=== PATIENT | female | born 1940 | race Caucasian/White ===

== ENCOUNTER 2020-07-15 07:16 | Emergency (ER) | payer MEDICARE, OTHER ==
[~2020-07-15] VITALS: Ht 170.2 cm; Wt 78.9 kg
--- NOTE | 2020-07-15 07:31 | Emergency Department Note ---
History of Present Illnes History of Present Illness Chief Complaint: Skin Rash or Abscess History of Present Illness This is a 79 year old female Chief Complaint Comment Patient in from assisted living via EMS with complaints of a lesion on her right breast that has been bleeding since early this morning. Patient has a history of breast cancer and dementia and is a poor historian. The bleeding is not severe but it is oozing small amounts of blood. Historian: Patient, Note Keeper/EMS Arrival Mode: [facility] Maintenance Required: No Onset (how long ago): hour(s) Location: R chest Quality: bleeding Radiation: Reports non-radiation Severity: mild Onset quality: unable to specify Duration (how long): hour(s) Timing of current episode: constant Progression: improving Chronicity: recurrent Context: Denies recent illness, Denies recent surgery Relieving factors: none Exacerbating factors: none Associated symptoms: Reports denies other symptoms Treatments prior to arrival: none Past Medical/Family History Physician Review I have reviewed the patient's past medical and family history. Any updates have been documented here. Past Medical History Recent Fever: No Clinical Suspicion of Infectio: No New/Unexplained Change in Ment: No Review of Systems Review of Systems Constitutional: Reports no symptoms EENTM: Reports no symptoms Cardiovascular: Reports no symptoms Respiratory: Reports no symptoms Gastrointestinal: Reports no symptoms Genitourinary: Reports no symptoms Musculoskeletal: Reports no symptoms Integumentary: Reports as per HPI Neurological: Reports no symptoms Psychological: Reports no symptoms Endocrine: Reports no symptoms Hematological/Lymphatic: Reports no symptoms Physical Exam Related Data Allergies: Coded Allergies: Penicillins (Verified Allergy, Unknown, 07/15/20) Triage Vital Signs Vital Signs Date Time Temp Pulse Resp B/P (MAP) Pulse Ox O2 Delivery O2 Flow Rate FiO2 07/15/20 07:18 98.2 61 15 154/75 99 Room Air Vital signs reviewed: Yes Physical Exam CONSTITUTIONAL Constitutional: Present well-developed, Present well-nourished HENT HENT: Present normocephalic, Present atraumatic, Present oropharynx clear/moist, Present nose normal HENT L/R: Present left ext ear normal, Present right ext ear normal EYES Eyes: Reports PERRL, Reports conjunctivae normal NECK Neck: Present ROM normal PULMONARY Pulmonary: Present effort normal, Present breath sounds normal CARDIOVASCULAR Cardiovascular: Present regular rhythm, Present heart sounds normal, Present capillary refill normal, Present normal rate GASTROINTESTINAL Abdominal: Present soft, Present nontender, Present bowel sounds normal GENITOURINARY Genitourinary: Present exam deferred SKIN Skin: Present warm, Present dry, Present lesion (R sided breast blue-sherrill raised lesion 2cm x 2cm x 1cm with scant bleeding) MUSCULOSKELETAL Musculoskeletal: Present ROM normal NEUROLOGICAL Neurological: Present alert, Present oriented x 3, Present no gross motor or sensory deficits PSYCHOLOGICAL Psychological: Present mood/affect normal, Present judgement normal Assessment & Plan Medical Decision Making MDM 79 y.o f PMH of breast CA presents to the ED for R sided angiosarcoma lesions which is oozing blood. No other complaints. This is recurrent. Exam shows noted lesion on exam. No significant bleeding. Blood work unremarkable. 4x4 placed on lesion and taped down. Discussed management with daughter and patient. no longer bleeding. CT shows known findings. No emergent process. Appropriate for DC. 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
[2020-07-15 07:33] LABS: BASOPHILS # (AUTO) 0.1 (0.0-0.1); EOSINOPHILS # (AUTO) 0.2 (0.0-0.4); EOSINOPHILS % 3.4 % (0.0-6.0); HEMATOCRIT 41.4 % (34.2-44.1); HEMOGLOBIN 13.3 g/dL (12.0-16.0); LYMPHOCYTES # (AUTO) 2.7 (1.0-3.2); LYMPHOCYTES % 37.3 % (18.0-39.1); MEAN CORPUSCULAR HEMOGLOBIN 30.9 pg (28-32); MEAN CORPUSCULAR HGB CONC 32.1 g/dL (31-35); MEAN CORPUSCULAR VOLUME 96.3 fL (81-99); MONOCYTES # (AUTO) 0.5 (0.2-0.8); MONOCYTES % 6.6 % (4.4-11.3); NEUTROPHILS # (AUTO) 3.7 (2.1-6.9); NEUTROPHILS % 51.6 % (38.7-80.0); PLATELET COUNT 312 x10e3/uL (140-360); RED CELL DISTRIBUTION WIDTH 13.2 % (11.7-14.4)
[2020-07-15 07:43] LABS: INR 0.94
[2020-07-15 07:53] LABS: ALBUMIN 3.3 g/dL (3.5-5.0); ALBUMIN/GLOBULIN RATIO 1.1 (0.8-2.0); ANION GAP 14.1 mmol/L (8-16); CALCIUM 8.8 mg/dL (8.4-10.2); CREATININE, SERUM 1.01 mg/dL (0.57-1.11); POTASSIUM 4.1 mmol/L (3.5-5.1)
--- OUTSIDE RECORDS SUMMARY | 2020-07-15 08:06 | XMS REPORT | Continuity of Care Document ---
Author Author [facility] t Organization [facility] Address [address] [place] [id number] Phone Unavailable Care Team Providers Care Sieve Repairer Name Role Phone Aurelia JONES PCP Unavailable SYSTEM, NOT IN PROVIDER Attphys Unavailable Kera Aiken Attphys Ro Johns Attphys Unavailable Eugenio Bonilla Attphys Status, Fax Attphys Unavailable Richi MedAdherenceSusana Attphys [place] MedRocio Fall Attphys Unavailable Rosemary Ruiz Attphys Unavailable Kassandra Polanco Attphys Unavailable Jeff Griffiths Attphys Unavailable Unique Hanks Attphys Gunderson, Kerri Attphys Unavailable Anders, Araceli Attphys Unavailable Sujey Calvillo Attphys Margaret Beal Attphys Unavailable Dipak Sexton Attphys Unavailable Tia Bonilla Attphys Unavailable Maddy Hernadez Attphys Unavailable Troy Janice Attphys Unavailable Taylor Macias Attphys Unavailable Connie, Madhumita Attphys Lydia Thompson Attphys Unavailable Ana Gutierrez Attphys Zora Kirkland Attphys Unavailable Tonya Pollard Attphys Unavailable Ximena Dumont Attphys Unavailable Nati Christina Attphys Unavailable Genia Pena Attphys Unavailable Nardevin, Teofilo Attphys Unavailable Ximena Fisher Attphys Unavailable Domenico Stern Attphys Unavailable Desktop, [facility] Support Attphys Unavailable PupGeri de dios Attphys Preload, Zoroastrianism Attphys Unavailable Attila Kera Unavailable Tanner Rosales Unavailable Domenico Stern Unavailable Unavailable Problems Condition Name Condition Details Condition Category Status Onset Date Resolution Date Last Treatment Date Treating Clinician Comments Source Dementia Condition Active 2017-11-19 00:00:00 6 10:49:07 Kera Aiken [facility] INSOMNIA Condition Active 2017-09-12 00:00:00 2017-08-30 4 10:24:52 [facility] PTSD Condition Active 2017-09-12 00:00:00 2017-09-12 10:24:52 [facility] Memory impairment Condition Active 2017-04-25 00:00:00 2017-04-25 09:20:38 [facility] Hyperlipidemia Condition Active 2016-11-01 00:00:00 201 04-05-27 09:08:17 Ananya Rosalesangi ASCVD risk 27, recommend moderate to hig h intensity statin therapy [facility] Cholesterol, Screening Condition Active 2016-10-29 00:00: 00 2016-10-29 15:12:48 Connie [facility] Shortness of breath Condition Active 2016-08-01 00:00:00 2016-10-29 [facility]07[facility] depression Condition Active 2016-08-01 00:00:00 2016-10-29 15:07:31 [facility] BMI 31.0-31.9 Condition Active 2016-02-24 00:00:00 2015 16:08:35 [facility] Obesity Condition Active 2015-08-24 00:00:00 2016-02-24 15:57:28 [facility] Elevated blood pressure Condition Active 2015-08-02 00:00 :00 2015-08-02 20:01:00 [facility] Condition Active 2015-08-02 00:00:00 2015-08-02 [facility]ox[facility] Condition Active 2015-04-30 1 00:00:00 2015-08-02 08:57:31 Tanner Rosales [facility] HYPOTHYROIDISM Condition Active 2014-02-25 00:00:00 201 01-02-29 16:39:03 Domenico Stern [facility] History of Past Illness Condition Name Condition Details Condition Category Status Onset Date Resolution Date Last Treatment Date Treating Clinician Comments Source Vaccination Against Influenza Condition Inactive 2015-09 00:00:00 2017-01-28 00:00:00 2016-10-29 15:07:31 Connie [facility] Grief reaction, acute Condition Inactive 2016-08-01 00: 00:00 2016-10-29 00:00:00 2016-10-29 15:12:48 Connie [facility] Cellulitis Condition Inactive 2016-02-24 00:00:00 2016-10-02 0 00:00:00 2016-10-29 15:12:48 Connie [facility] Chest pain Condition Inactive 2015-05-10 00:00:00 3 00:00:00 2015-08-02 16:37:[address] [facility] Allergies, Adverse Reactions, Alerts Allergy Name Allergy Type Status Severity Reaction(s) Onset Date Inacti ve Date Treating Clinician Comments Source PENICILLIN Drug allergy (disorder) Active High Criticality [facility] Social History Social Habit Start Date Stop Date Quantity Comments Source passive cigarette smoke exposure 2019-10-20 10:26:24 2019-10-20 10:26 :24 No [facility] drug use, illicit 2019-10-20 10:26:24 2019-10-20 10:26:24 Never [facility] alcohol use 2019-10-20 10:26:24 2019-10-20 10:26:24 Never [facility] assessment of health literacy (NCQA PCM 2014 Standard s, 3C10) 2019-10-20 10:26:24 2019-10-20 10:26:24 Adequate [facility] is there any chance that you could be ? 2019-10-20 1 0:26:24 2019-10-20 10:26:24 No [facility] lt time of call 2018-01-23 13:58:52 2018-01-23 13:58:52 01/23/2018 1:59 PM [facility] social history reviewed E&M 2017-12-03 10:49:16 2017-12-03 10:49 :16 reviewed today [facility] Occupation #1 2014-02-25 15:42:23 2014-02-25 15:42:23 Retired [facility] patient considered to be homeless 2014-02-25 15:42:23 2014-02-25 15:4 2:23 No [facility] Smoking Status Start Date Stop Date Source Never smoked tobacco (finding) L [facility] Medications Ordered Medication Name Filled Medication Name Start Date Stop Da te Current Medication? Ordering Clinician Indication Dosage Frequency Signature (SIG) Comments Components Source FIRST-PROGESTERONE VGS (PROGESTERONE) 200 MG SUPP 2019-10-05 00:00:00 Yes use as instructed [facility] WELLBUTRIN XL (BUPROPION HCL) 150 MG [id number] 2019-10-05 00:00:00 Yes Kera Attila 1{Tablet} 1xD one tablet once daily [facility] (LOSARTAN POTASSIUM) 100 MG TABS 2019-10-05 00:00:00 Yes 1{Tablet} 1xD one tablet once daily [facility]alth (SERTRALINE HCL) 25 MG TABS 2017-12-03 00:00:00 2019-10-05 00:00 :00 No 1 tablet by mouth at bedtime [facility] (TRAZODONE HCL) 50 MG TABS 2017-11-19 00:00:00 2019-10-05 00:00:00 No Kera Attila one tablet once daily at bedtime [facility] (RIVASTIGMINE TARTRATE) 1.5 MG CAPS 2017-01-29 00:00:0 0 2019-10-05 00:00:00 No TAKE ONE CAPSULE BY MOUTH EVERY DAY #90, 90 days supply, Prescribed by SHANTA NAJERA, Filled 04/17/2017 [facility] lt (ATORVASTATIN CALCIUM) 20 MG TABS 2016-11-01 00:00:00 Ye negra Kera Attila 1 tab By Mouth at bedtime [facility] PROAIR HFA (ALBUTEROL SULFATE) 108 (90 Base) MCG/ACT AERS 2016-08-01 00:00:00 2019-10-05 00:00:00 No 2 puffs every 4 - 6 hours as needed [facility] (SERTRALINE HCL) 25 MG TABS 2016-08-01 00:00:00 2017-11-19 00:00 :00 No 1 tab By Mouth at bedtime [facility] ELIQUIS (APIXABAN) 2.5 MG TABS 2016-02-24 00:00:00 2019-10-05 00 :00:00 No 1 tab By Mouth Twice a Day L [facility] BACTRIM DS (SULFAMETHOXAZOLE-TRIMETHOPRIM) 800-160 MG TABS 2016-02-24 00:00:00 2016-03-05 00:00:00 No Madhumita Connie 1 tab by mouth twice a day [facility] (RANITIDINE HCL) 150 MG TABS 2015-08-02 00:00:00 2019-10-05 00:0 0:00 No 1 by mouth twice a day [facility] (ATORVASTATIN CALCIUM) 20 MG TABS 2015-06-09 00:00:00 2014 00:00:00 No take one tab By Mouth Every at bedtime [facility] (METOPROLOL TARTRATE) 25 MG TABS 2015-06-09 00:00:00 2015-07 00:00:00 No 1 by mouth twice a day Tia [facility] SYNTHROID (LEVOTHYROXINE SODIUM) 125 MCG TABS 10-02-29 00:00:00 2019-10-05 00:00:00 No Take one half tablet daily. [facility] Vital Signs Vital Name Observation Time Observation Value Comments Source oxygen saturation, oximetry 2019-10-20 10:26:24 96 % [facility] blood pressure, diastolic 2019-10-20 10:26:24 77 mm[Hg] [facility] blood pressure, systolic 2019-10-20 10:26:24 125 mm[Hg] [facility] respiratory rate E&M 2019-10-20 10:26:24 14 /min [facility] pulse rate E&M 2019-10-20 10:26:24 94 /min [facility] temperature site 2019-10-20 10:26:24 oral [facility] temperature E&M 2019-10-20 10:26:24 98.0 [degF] Legac y Replaced By [facility] weight E&M 2019-10-20 10:26:24 187.40 [lb_av] [facility] weight in kilograms E&M 2019-10-20 10:26:24 85.18 kg [facility] height in centimeters E&M 2019-10-20 10:26:24 170.18 cm [facility] oxygen saturation, oximetry 2019-10-05 13:43:48 98 % [facility] blood pressure, diastolic 2019-10-05 13:43:48 75 mm[Hg] [facility] blood pressure, systolic 2019-10-05 13:43:48 118 mm[Hg] [facility] respiratory rate E&M 2019-10-05 13:43:48 14 /min [facility] pulse rate E&M 2019-10-05 13:43:48 90 /min [facility] temperature site 2019-10-05 13:43:48 oral Lega [facility] temperature E&M 2019-10-05 13:43:48 97.9 [degF] Legac [facility] weight E&M 2019-10-05 13:43:48 186.20 [lb_av] [facility] weight in kilograms E&M 2019-10-05 13:43:48 84.64 kg [facility] height in centimeters E&M 2019-10-05 13:43:48 170.18 cm [facility] oxygen saturation, oximetry 2017-12-03 10:49:16 98 % [facility] blood pressure, diastolic 2017-12-03 10:49:16 84 mm[Hg] [facility] blood pressure, systolic 2017-12-03 10:49:16 148 mm[Hg] [facility] respiratory rate E&M 2017-12-03 10:49:16 17 /min [facility] pulse rate E&M 2017-12-03 10:49:16 75 /min [facility] temperature site 2017-12-03 10:49:16 oral Lega [facility] temperature E&M 2017-12-03 10:49:16 97.8 [degF] Legac [facility] weight E&M 2017-12-03 10:49:16 197 [facility]av] [facility] 2017-12-03 10:49:16 89.55 kg [facility] height in centimeters E&M 2017-12-03 10:49:16 170.18 cm [facility] oxygen saturation, oximetry 2017-11-19 08:51:05 94 % [facility] blood pressure, diastolic 2017-11-19 08:51:05 77 mm[Hg] [facility] blood pressure, systolic 2017-11-19 08:51:05 138 mm[Hg] [facility] respiratory rate E&M 2017-11-19 08:51:05 16 /min [facility] pulse rate E&M 2017-11-19 08:51:05 80 /min [facility] temperature site 2017-11-19 08:51:05 oral Lega cy [facility] temperature E&M 2017-11-19 08:51:05 97.7 [degF] Legac y Replaced By [facility] weight E&M 2017-11-19 08:51:05 194 [lb_av] [facility]&M 2017-11-19 08:51:05 88.18 kg [facility] height E&M 2017-11-19 08:51:05 67 [in_i] [facility] blood pressure, diastolic 2017-09-12 08:32:33 83 mm[Hg] [facility] blood pressure, systolic 2017-09-12 08:32:33 152 mm[Hg] [facility] oxygen saturation, oximetry 2017-09-12 08:32:33 98 % [facility] respiratory rate E&M 2017-09-12 08:32:33 18 /min [facility] pulse rate E&M 2017-09-12 08:32:33 69 /min [facility] temperature site 2017-09-12 08:32:33 oral Lega cy Replaced By [facility] temperature E&M 2017-09-12 08:32:33 98.3 [degF] [facility] weight E&M 2017-09-12 08:32:33 203.80 [lb_av] [facility] weight in kilograms E&M 2017-09-12 08:32:33 92.64 kg [facility] height in centimeters E&M 2017-09-12 08:32:33 170.18 cm [facility] oxygen saturation, oximetry 2017-04-25 08:18:10 98 % [facility] blood pressure, diastolic 2017-04-25 08:18:10 84 mm[Hg] [facility] blood pressure, systolic 2017-04-25 08:18:10 127 mm[Hg] [facility] respiratory rate E&M 2017-04-25 08:18:10 18 /min [facility] pulse rate E&M 2017-04-25 08:18:10 79 /min [facility] temperature site 2017-04-25 08:18:10 oral Lega cy Replaced By [facility] temperature E&M 2017-04-25 08:18:10 98.7 [degF] Legac y Replaced By [facility] weight E&M 2017-04-25 08:18:10 211 [lb_av] [facility] weight in kilograms E&M 2017-04-25 08:18:10 95.91 kg [facility] height in centimeters E&M 2017-04-25 08:18:10 170.18 cm [facility] oxygen saturation, oximetry 2016-10-29 14:40:11 97 % [facility] blood pressure, diastolic 2016-10-29 14:40:11 82 mm[Hg] [facility] blood pressure, systolic 2016-10-29 14:40:11 172 mm[Hg] [facility] respiratory rate E&M 2016-10-29 14:40:11 16 /min [facility] pulse rate E&M 2016-10-29 14:40:11 71 /min [facility] temperature site 2016-10-29 14:40:11 tympanic Lega [facility] temperature E&M 2016-10-29 14:40:11 98.2 [degF] [facility] weight E&M 2016-10-29 14:40:11 205 [lb_av] [facility] weight in kilograms E&M 2016-10-29 14:40:11 93.18 kg [facility] height E&M 2016-10-29 14:40:11 67 [in_i] [facility] oxygen saturation, oximetry 2016-10-18 14:04:19 98 % [facility] blood pressure, diastolic 2016-10-18 14:04:19 84 mm[Hg] [facility] blood pressure, systolic 2016-10-18 14:04:19 152 mm[Hg] [facility] respiratory rate E&M 2016-10-18 14:04:19 17 /min [facility] pulse rate E&M 2016-10-18 14:04:19 74 /min [facility] temperature E&M 2016-10-18 14:04:19 98 [degF] Legac y Replaced By [facility] weight E&M 2016-10-18 14:04:19 203 [lb_av] [facility] 2016-10-18 14:04:19 92.27 kg [facility] height in centimeters E&M 2016-10-18 14:04:19 170.18 cm [facility] oxygen saturation, oximetry 2016-08-01 08:03:14 98 % [facility] blood pressure, diastolic 2016-08-01 08:03:14 77 mm[Hg] [facility] blood pressure, systolic 2016-08-01 08:03:14 134 mm[Hg] [facility] respiratory rate E&M 2016-08-01 08:03:14 16 /min [facility] pulse rate E&M 2016-08-01 08:03:14 75 /min [facility] temperature site 2016-08-01 08:03:14 oral Lega cy [facility] temperature E&M 2016-08-01 08:03:14 98.3 [degF] Legac y Replaced By [facility] weight E&M 2016-08-01 08:03:14 200.40 [lb_av] [facility] weight in kilograms E&M 2016-08-01 08:03:14 91.09 kg [facility] height in centimeters E&M 2016-08-01 08:03:14 170.18 cm [facility] oxygen saturation, oximetry 2016-02-24 15:20:02 98 % [facility] blood pressure, diastolic 2016-02-24 15:20:02 94 mm[Hg] [facility] blood pressure, systolic 2016-02-24 15:20:02 142 mm[Hg] [facility] respiratory rate E&M 2016-02-24 15:20:02 20 /min [facility] pulse rate E&M 2016-02-24 15:20:02 83 /min [facility] temperature site 2016-02-24 15:20:02 oral Lega cy Replaced By [facility] temperature E&M 2016-02-24 15:20:02 98.0 [degF] [facility] weight E&M 2016-02-24 15:20:02 202.38 [lb_av] [facility] weight in kilograms E&M 2016-02-24 15:20:02 91.99 kg [facility] height in centimeters E&M 2016-02-24 15:20:02 170.18 cm [facility] oxygen saturation, oximetry 2015-08-23 08:46:18 98 % [facility] blood pressure, diastolic 2015-08-23 08:46:18 72 mm[Hg] [facility] blood pressure, systolic 2015-08-23 08:46:18 148 mm[Hg] [facility] respiratory rate E&M 2015-08-23 08:46:18 19 /min [facility] pulse rate E&M 2015-08-23 08:46:18 71 /min [facility] temperature E&M 2015-08-23 08:46:18 98.4 [degF] Legac y Replaced By [facility] weight E&M 2015-08-23 08:46:18 205 [lb_av] [facility] weight in kilograms E&M 2015-08-23 08:46:18 93.18 kg [facility] temperature site 2015-08-23 08:46:18 oral Lega cy [facility] height in centimeters E&M 2015-08-23 08:46:18 170.18 cm [facility] oxygen saturation, oximetry 2015-08-02 08:25:59 98 % [facility] blood pressure, diastolic 2015-08-02 08:25:59 96 mm[Hg] [facility] blood pressure, systolic 2015-08-02 08:25:59 150 mm[Hg] [facility] respiratory rate E&M 2015-08-02 08:25:59 16 /min [facility] pulse rate E&M 2015-08-02 08:25:59 76 /min [facility] temperature site 2015-08-02 08:25:59 oral Lega cy Replaced By [facility] temperature E&M 2015-08-02 08:25:59 98.3 [degF] Legac y Replaced By [facility] weight E&M 2015-08-02 08:25:59 207.38 [lb_av] [facility] weight in kilograms E&M 2015-08-02 08:25:59 94.26 kg [facility] height in centimeters E&M 2015-08-02 08:25:59 170.18 cm [facility] oxygen saturation, oximetry 2015-05-10 15:27:25 98 % [facility] blood pressure, diastolic 2015-05-10 15:27:25 82 mm[Hg] [facility] blood pressure, systolic 2015-05-10 15:27:25 155 mm[Hg] [facility] respiratory rate E&M 2015-05-10 15:27:25 20 /min [facility] pulse rate E&M 2015-05-10 15:27:25 77 /min [facility] temperature site 2015-05-10 15:27:25 oral Lega cy [facility] temperature E&M 2015-05-10 15:27:25 98.1 [degF] Legac y Replaced By [facility] weight E&M 2015-05-10 15:27:25 200.25 [lb_av] [facility] weight in kilograms E&M 2015-05-10 15:27:25 91.02 kg [facility] height in centimeters E&M 2015-05-10 15:27:25 170.18 cm [facility] oxygen saturation, oximetry 2014-02-25 15:42:23 98 % [facility] blood pressure, diastolic 2014-02-25 15:42:23 84 mm[Hg] [facility] blood pressure, systolic 2014-02-25 15:42:23 156 mm[Hg] [facility] respiratory rate E&M 2014-02-25 15:42:23 20 /min [facility] pulse rate E&M 2014-02-25 15:42:23 93 /min [facility] temperature site 2014-02-25 15:42:23 oral Lega cy Replaced By [facility] temperature E&M 2014-02-25 15:42:23 98.4 [degF] Legac y [facility] weight E&M 2014-02-25 15:42:23 192.80 [lb_av] [facility] weight in kilograms E&M 2014-02-25 15:42:23 87.64 kg [facility] height in centimeters E&M 2014-02-25 15:42:23 170.18 cm [facility] blood pressure, systolic 2013-03-27 00:00:00 106 mm[Hg] [facility] respiratory rate E&M 2013-03-27 00:00:00 18 /min [facility] blood pressure, diastolic 2013-03-27 00:00:00 68 mm[Hg] [facility] pulse rate E&M 2013-03-27 00:00:00 66 /min [facility] blood pressure, diastolic 2012-04-09 00:00:00 80 mm[Hg] [facility] blood pressure, systolic 2012-04-09 00:00:00 136 mm[Hg] [facility] respiratory rate E&M 2012-04-09 00:00:00 20 /min [facility] pulse rate E&M 2012-04-09 00:00:00 86 /min [facility] height E&M 2012-04-09 00:00:00 67.00 [in_i] [facility] weight E&M 2012-04-09 00:00:00 244.50 [lb_av] [facility] Procedures Procedure Date / Time Performed Performing Clinician Sour e Spirometry - Pre vs Post Bronchodilator 2016-10-18 14:45:22 Ehda ie, Elza Perez [facility] Influenza 4 Valent 3yrs+ IM - Declined 2016-08-01 08:42:18 Tanner Rosales [facility] EKG - Tracing Only 2015-05-10 16:44:31 Tanner Rosales [facility] Encounters Start Date/Time End Date/Time Encounter Type Admission Type Attendi [facility] Care Department Encounter ID Source 2020-07-13 08:56:57 Outpatient SYSTEM, PROVIDER MANOHAR VILLELA [id number] MD Fuller 2019-10-20 00:00:00 2019-10-20 00:00:00 Office Visit Kera Santos Adriana [facility] Encounter/[id number] [facility] 2019-10-14 00:00:00 2019-10-14 00:00:00 Office Visit AttilaKera [facility] Encounter/[id number] [facility] 2019-10-05 00:00:00 2019-10-05 00:00:00 Office Visit Kera Santos Adriana [facility] Encounter/[id number] [facility] 2018-12-09 00:00:00 2018-12-09 00:00:00 Office Visit Froylan Bonilla [facility] Encounter/[id number] [facility] 2018-12-02 00:00:00 2018-12-02 00:00:00 Office Visit Heidy Guajardo [facility] Encounter/[id number] [facility] 2018-05-05 00:00:00 2018-05-05 00:00:00 Office Visit Ida posadas MedAdherSusana woods [facility] Encounter/[id number] [facility] 2018-05-05 00:00:00 2018-05-05 00:00:00 Office Visit Ida posadas MedAdherSusana woods [facility] Encounter/[id number] [facility] 2018-03-31 00:00:00 2018-03-31 00:00:00 Office Visit Libertad cuevas MedAdherchuck Rocio [facility] Encounter/[id number] [facility] 2018-03-29 00:00:00 2018-03-29 00:00:00 Office Visit Libertad revlori MedAdherchuck Rocio [facility] Encounter/[id number] [facility] 2018-03-25 00:00:00 2018-03-25 00:00:00 Office Visit Libertad cuevas MedAdherchuck Rocio [facility] Encounter/[id number] [facility] 2018-03-25 00:00:00 2018-03-25 00:00:00 Office Visit Libertad Chowdary Rocio [facility] Encounter/[id number] [facility] 2018-02-20 00:00:00 2018-02-20 00:00:00 Office Visit Ida posadas MedAdherSusana woods [facility] Encounter/[id number] [facility] 2018-02-19 00:00:00 2018-02-19 00:00:00 Office Visit Ida posadas MedAdherSusana woods [facility] Encounter/[id number] [facility] 2018-02-19 00:00:00 2018-02-19 00:00:00 Office Visit Ida posadas MedAdherCordell woodsyn [facility] Encounter/[id number] [facility] 2018-01-24 00:00:00 2018-01-24 00:00:00 Office Visit Rosemary Ruiz [facility] Encounter/[id number] [facility] 2018-01-23 00:00:00 2018-01-23 00:00:00 Office Visit Libertad Chowdary, Rocio Polanco, Kassandra Griffiths, Kera Yuen [facility] Center Encounter/[id number] [facility] 2018-01-20 00:00:00 2018-01-20 00:00:00 Office Visit Libertad revlori MedAdherchuck Rocio [facility] Encounter/[id number] [facility] 2018-01-18 00:00:00 2018-01-18 00:00:00 Office Visit Libertad revino MedAdherchuck Rocio [facility] Encounter/[id number] [facility] 2018-01-02 00:00:00 2018-01-02 00:00:00 Office Visit Libertad revino MedAdherence Rocio [facility] Encounter/[id number] [facility] 2018-01-02 00:00:00 2018-01-02 00:00:00 Office Visit Libertad revino [facility] Encounter/[id number] [facility] 2017-12-23 00:00:00 2017-12-23 00:00:00 Office Visit Libertad mason [facility], Roc[facility] Encounter/[id number] [facility] 2017-12-21 00:00:00 2017-12-21 00:00:00 Office Visit Libertad mason [facility], Rocio [facility] Encounter/[id number] [facility] 2017-12-05 00:00:00 2017-12-05 00:00:00 Office Visit Status, Fax [facility] Encounter/[id number] [facility] 2017-12-05 00:00:00 2017-12-05 00:00:00 Office Visit Status, Fax [facility] Encounter/[id number] [facility] 2017-12-05 00:00:00 2017-12-05 00:00:00 Office Visit Status, Fax [facility] Encounter/[id number] [facility] 2017-12-03 00:00:00 2017-12-03 00:00:00 Office Visit Unique Hanks [facility] Encounter/[id number] [facility] 2017-12-03 00:00:00 2017-12-03 00:00:00 Office Visit Unique Lynch, Kerri Anders, Araceli Calvillo, Margaret Yun [facility] Encounter/[id number] [facility] 2017-12-02 00:00:00 2017-12-02 00:00:00 Office Visit Rosemary Ruiz [facility] Encounter/[id number] [facility] 2017-11-21 00:00:00 2017-11-21 00:00:00 [facility]/[id number] [facility] 2017-11-19 00:00:00 2017-11-19 00:00:00 Office Visit Carlie Damianis [facility] Encounter/[id number] [facility] 2017-11-19 00:00:00 2017-11-19 00:00:00 Office Visit Kera Aiken [facility] Encounter/[id number] [facility] 2017-11-19 00:00:00 2017-11-19 00:00:00 Office Visit Kera Santos Rita [facility] Encounter/[id number] [facility] 2017-11-14 00:00:00 2017-11-14 00:00:00 Office Visit Sobeida Hernadez [facility] Encounter/[id number] [facility] 2017-10-02 00:00:00 2017-10-02 00:00:00 Office Visit Ida posadas MedSusana Fall [facility] Encounter/[id number] [facility] 2017-09-26 00:00:00 2017-09-26 00:00:00 Office Visit Ida posadas MedSusana Fall [facility] Encounter/[id number] [facility] 2017-09-26 00:00:00 2017-09-26 00:00:00 Office Visit Ida posadas MedSusana Fall [facility] Encounter/[id number] [facility] 2017-09-25 00:00:00 2017-09-25 00:00:00 Office Visit Kera Aiken [facility] Encounter/[id number] [facility] 2017-09-12 00:00:00 2017-09-12 00:00:00 Office Visit Kera Aiken [facility] Encounter/[id number] [facility] 2017-09-12 00:00:00 2017-09-12 00:00:00 Office Visit Kera Aiken [facility] Encounter/[id number] [facility] 2017-09-12 00:00:00 2017-09-12 00:00:00 Office Visit Martin Aikenera [facility] Encounter/[id number] [facility] 2017-09-12 00:00:00 2017-09-12 00:00:00 Office Visit Alexei tangKera Jacqueline [facility] Encounter/[id number] [facility] 2017-09-10 00:00:00 2017-09-10 00:00:00 Office Visit Sobeida Hernadez [facility] Encounter/[id number] [facility] 2017-08-13 00:00:00 2017-08-13 00:00:00 Office Visit AttilaMartinKera [facility] Encounter/[id number] [facility] 2017-06-25 00:00:00 2017-06-25 00:00:00 Office Visit Susana Mar [facility] Encounter/[id number] [facility] 2017-06-25 00:00:00 2017-06-25 00:00:00 Office Visit Susana Mar [facility] Encounter/[id number] [facility] 2017-04-25 00:00:00 2017-04-25 00:00:00 Office Visit Attila Kera [facility] Encounter/[id number] [facility] 2017-04-25 00:00:00 2017-04-25 00:00:00 Office Visit Alexei redmondbrianKera Jacqueline [facility] Encounter/[id number] [facility] 2017-04-24 00:00:00 2017-04-24 00:00:00 Office Visit Sobeida Hernadez [facility] Encounter/[id number] [facility] 2017-03-25 00:00:00 2017-03-25 00:00:00 Office Visit Rocio Murrieta [facility] Encounter/[id number] [facility] 2017-03-22 00:00:00 2017-03-22 00:00:00 Office Visit Libertad cuevas MedAdherchuck Rocio [facility] Encounter/[id number] [facility] 2017-03-22 00:00:00 2017-03-22 00:00:00 Office Visit Libertad cuevas MedAdherchuck Rocio [facility] Encounter/[id number] [facility] 2016-11-02 00:00:00 2016-11-02 00:00:00 Office Visit Taylor Macias [facility] Encounter/[id number] [facility] 2016-11-01 00:00:00 2016-11-01 00:00:00 Office Visit Tanner Rosales [facility] Encounter/[id number] [facility] 2016-10-29 00:00:00 2016-10-29 00:00:00 Office Visit Tanner Martinez Christina [facility] Encounter/[id number] [facility] 2016-10-29 00:00:00 2016-10-29 00:00:00 Office Visit Tanner Rosales [facility] Encounter/[id number] [facility] 2016-10-29 00:00:00 2016-10-29 00:00:00 Office Visit Tanner Martinez Rita [facility] Encounter/[id number] [facility] 2016-10-25 00:00:00 2016-10-25 00:00:00 Office Visit Libertad cuevas MedAdherchuck Rocio [facility] Encounter/[id number] [facility] 2016-10-25 00:00:00 2016-10-25 00:00:00 Office Visit Libertad cuevas MedAdherRocio woods Nelly Phillips MedAdherence, Susana [facility] Encounter/[id number] [facility] 2016-10-25 00:00:00 2016-10-25 00:00:00 Office Visit Libertad revino MedAdherence, Rocio [facility] Encounter/[id number] [facility] 2016-10-18 00:00:00 2016-10-18 00:00:00 Office Visit Elza Hurst, Zora GundersonKerri [facility] Encounter/[id number] [facility] 2016-10-12 00:00:00 2016-10-12 00:00:00 Office Visit Oren Gundersoniana [facility] Encounter/[id number] [facility] 2016-08-01 00:00:00 2016-08-01 00:00:00 Office Visit Tanner Rosales [facility] Encounter/[id number] [facility] 2016-08-01 00:00:00 2016-08-01 00:00:00 Office Visit Tanner Martinez Angela Beverly, Ximena Munguia [facility] Encounter/[id number] [facility] 2016-07-26 00:00:00 2016-07-26 00:00:00 Office Visit Sobeida Hernadez [facility] Encounter/[id number] [facility] 2016-07-20 00:00:00 2016-07-20 00:00:00 Office Visit Libertad revino [facility], [facility]/[id number] [facility] 2016-07-20 00:00:00 2016-07-20 00:00:00 Office Visit Libertad revino MedAdherence, Rocio [facility] Encounter/[id number] [facility] 2016-06-08 00:00:00 2016-06-08 00:00:00 Office Visit Rosemary Sun Lisa [facility] Encounter/[id number] [facility] 2016-02-24 00:00:00 2016-02-24 00:00:00 Office Visit Tanner Rosales [facility] Encounter/[id number] [facility] 2016-02-24 00:00:00 2016-02-24 00:00:00 Office Visit B jennifer Tanner McneillvezXimena [facility] Encounter/[id number] [facility] 2015-08-24 00:00:00 2015-08-24 00:00:00 Office Visit Connie Tanner [facility] Encounter/[id number] [facility] 2015-08-23 00:00:00 2015-08-23 00:00:00 Office Visit B rufinoangiTanner Dulce [facility] Encounter/[id number] [facility] 2015-08-02 00:00:00 2015-08-02 00:00:00 Office Visit Connie Tanner [facility] Encounter/[id number] [facility] 2015-08-02 00:00:00 2015-08-02 00:00:00 Office Visit B jennifer Tanner DumontXimena [facility] Encounter/[id number] [facility] 2015-07-13 00:00:00 2015-07-13 00:00:00 Office Visit Roddy Rosalesoctavia [facility] Encounter/[id number] [facility] 2015-06-16 00:00:00 2015-06-16 00:00:00 Office Visit Genia Pena [facility] Encounter/[id number] [facility] 2015-06-09 00:00:00 2015-06-09 00:00:00 Office Visit Genia Finley Dusty [facility] Encounter/[id number] [facility] 2015-05-24 00:00:00 2015-05-24 00:00:00 Office Visit Taylor Macias [facility] Encounter/[id number] [facility] 2015-05-23 00:00:00 2015-05-23 00:00:00 Office Visit B Tanner rodriguez Christina [facility] Encounter/[id number] [facility] 2015-05-17 00:00:00 2015-05-17 00:00:00 Office Visit Tanner Rosales [facility] Encounter/[id number] [facility] 2015-05-11 00:00:00 2015-05-11 00:00:00 Office Visit Tanner Rosales [facility] Encounter/[id number] [facility] 2015-05-11 00:00:00 2015-05-11 00:00:00 Office Visit Tanner Rosales [facility] Encounter/[id number] [facility] 2015-05-11 00:00:00 2015-05-11 00:00:00 Office Visit Tanner Rosales [facility] Encounter/[id number] [facility] 2015-05-10 00:00:00 2015-05-10 00:00:00 Office Visit Tanner Rosales [facility] Encounter/[id number] [facility] 2015-05-10 00:00:00 2015-05-10 00:00:00 Office Visit Tanner Rosales [facility] Encounter/[id number] [facility] 2015-05-10 00:00:00 2015-05-10 00:00:00 Office Visit Tanner Rosales [facility] Encounter/[id number] [facility] 2015-05-10 00:00:00 2015-05-10 00:00:00 Office Visit Tanner Rosales [facility] Encounter/[id number] [facility] 2015-05-10 00:00:00 2015-05-10 00:00:00 Office Visit Tanner Rosales [facility] Encounter/[id number] [facility] 2015-05-10 00:00:00 2015-05-10 00:00:00 Office Visit Geovani Rosalesmercedangi [facility] Encounter/[id number] [facility] 2015-05-10 00:00:00 2015-05-10 00:00:00 Office Visit Elza Gutierrez [facility] Encounter/[id number] [facility] 2015-05-10 00:00:00 2015-05-10 00:00:00 Office Visit B Tanner rodriguez Maria [facility] Encounter/[id number] [facility] 2014-03-01 00:00:00 2014-03-01 00:00:00 [facility]/[id number] [facility] 2014-02-26 00:00:00 2014-02-26 00:00:00 Office Visit Kb Stern [facility] Encounter/[id number] [facility] 2014-02-25 00:00:00 2014-02-25 00:00:00 Office Visit D froy LSJ Lab Support Domenico Stern [facility] Encounter/[id number] [facility] 2014-02-25 00:00:00 2014-02-25 00:00:00 Office Visit P Geri douglas Lindsey Shah, Nish [facility] Encounter/[id number] [facility] 2013-04-30 00:00:00 2013-04-30 00:00:00 Office Visit Preload , Zoroastrianism [facility] Encounter/[id number] [facility] 2013-04-30 00:00:00 2013-04-30 00:00:00 Office Visit Preload , Zoroastrianism [facility] Encounter/[id number] [facility] 2013-03-27 00:00:00 2013-03-27 00:00:00 Office Visit Preload , Zoroastrianism [facility] Encounter/[id number] [facility] 2013-03-27 00:00:00 2013-03-27 00:00:00 Office Visit Preload , Zoroastrianism [facility] Encounter/[id number] [facility] 2013-03-27 00:00:00 2013-03-27 00:00:00 Office Visit Preload , Zoroastrianism [facility] Encounter/[id number] [facility] 2013-03-27 00:00:00 2013-03-27 00:00:00 Office Visit Preload , Zoroastrianism [facility] Encounter/[id number] [facility] 2013-03-16 00:00:00 2013-03-16 00:00:00 Office Visit Preload , Zoroastrianism [facility] Encounter/[id number] [facility] 2012-04-17 00:00:00 2012-04-17 00:00:00 Office Visit Preload , Zoroastrianism [facility] Encounter/[id number] [facility] 2012-04-11 00:00:00 2012-04-11 00:00:00 Office Visit Preload , Zoroastrianism [facility] Encounter/[id number] [facility] 2012-04-09 00:00:00 2012-04-09 00:00:00 Office Visit Preload , Zoroastrianism [facility] Encounter/[id number] [facility] 2012-04-09 00:00:00 2012-04-09 00:00:00 Office Visit Preload , Zoroastrianism [facility] Encounter/[id number] [facility] 2012-04-09 00:00:00 2012-04-09 00:00:00 Office Visit Preload , Zoroastrianism [facility] Encounter/[id number] [facility] 2012-04-09 00:00:00 2012-04-09 00:00:00 Office Visit Preload , Zoroastrianism [facility] Encounter/[id number] [facility] 2012-04-09 00:00:00 2012-04-09 00:00:00 Office Visit Preload , Zoroastrianism [facility] Encounter/[id number] [facility] 2010-08-07 00:00:00 2010-08-07 00:00:00 Office Visit David Jones [facility] Encounter/[id number] [facility] Results Test Description Test Time Test Comments Results Result Comments Source BREAST ULTRASOUND CORE BIOPSY RIGHT 2020-07-05 07:54:59 - BREAST ULTRASOUND CORE BIOPSY RIGHTULTRASOUND GUIDED BIOPSY RIGHT BREAST WITH MARKING DEVICE INSERTED: 06/30/2020CLINICAL: Ultrasound biopsy, right breast. Comparison is made to exams dated 06/27/2020 ultrasound and 06/27/2020 mammogram - [facility]-. An ultrasound guided biopsy using real-time ultrasound was performed for the 2.5 cm mass located in the right breast at 3 o'clock. The skin was prepped in the usual manner. Local anesthetic was administered to the access site. A 14 gauge biopsy needle was placed adjacent to the abnormality under ultrasound guidance. Once the needle was documented to be in the correct location, multiple specimens were obtained using a Playcez biopsy device. A clip was inserted into the biopsy cavity. The specimens were sent to the laboratory for pathological analysis. IMPRESSION: ULTRASOUND GUIDED BIOPSY MALIGNANT Ultrasound guided biopsy of the 2.5 cm mass in the right breast at 3 o'clock was successful with no apparent post procedure complications. Pathology Indicates:Malignant angiosarcoma. Irene Silveira M.D. dm/:07/05/2020 07:54:59 Entry: - 07/05/2020 08:18:33Imaging Technologist: Alicia Maynard , [facility]- DIAG MAMM RIGHT CAD DIGITAL 2020-06-30 12:58:43 - DIAG MAMM RIGHT CAD DIGITALUNILATERAL RIGHT DIGITAL DIAGNOSTIC MAMMOGRAM WITH CAD - RIGHT BREAST POST-PROCEDURE IMAGING FOR MARKER PLACEMENT: 06/30/2020CLINICAL: Post clip placement. Current mammographic images were evaluated by either a INSOMENIA M-Vu or a [employer]end[employer] ImageChecker CAD (computer aided detection system). Comparison is made to exams dated 06/27/2020 ultrasound and [facility] The tissue of the right breast is predominantly fatty. There is a marker clip in the appropriate position in the right breast at 3 o'clock. This marker clip placement is at the biopsy site. IMPRESSION: POST PROCEDURE IMAGING FOR MARKER PLACEMENTThere was a successful marker clip placement in the right breast. Irene Silveira M.D. dm/:06/30/2020 12:58:43 Background Investigator: Kassandra LAWSON, [facility]- FWMammogram BI-RADS: Post-procedure mammogram for marker placement DIAG MAMM BILATERAL VISH CAD DIGITAL 2020-06-27 12:35:38 - DIAG MAMM BILATERAL VISH CAD DIGITALBILATERAL DIGITAL DIAGNOSTIC MAMMOGRAM 3D/2D WITH CAD: 06/27/2020CLINICAL: Palpable mass, right breast. Digital breast tomosynthesis was performed in addition to routine CC and MLO views. Current mammographic images were evaluated by either a INSOMENIA M-Vu or a [employer] ImageChecker CAD (computer aided detection system). No prior exams were available for compariso n. The tissue of both breasts is predominantly fatty. There is a 2.5 cm round high density mass in the right breast at 3 o'clock. No other significant masses, calcifications, or other findings are seen in either breast. INCOMPLETE: ADDITIONAL IMAGING EVALUATION NEEDEDBilateral ultrasound pending for additional evaluation. - BREAST ULTRASOUND BILATERALULTRASOUND OF BOTH BREASTS AND BOTH AXILLA: 06/27/2020No prior exams were available for comparison. Real- time ultrasound of both breasts and both axilla and clinical breast exam were performed. There is a 2.5 cm round mass in the right breast at 3 o'clock, 5 cm from the nipple, extruding out from the skin. Color flow imaging demonstrates that there is increased vascularity. No abnormalities were seen sonographically in the left breast or either axilla. IMPRESSION: HIGHLY SUGGESTIVE OF MALIGNANCY - FOLLOW-UP RECOMMENDEDThe 2.5 cm round mass in the right breast is highly suggestive of malignancy. An ultrasound guided biopsy is recommended. Eugenio Silveira M.D. dm/:06/27/2020 12:35:38 Entry: - 06/27/2020 15:12:05Imaging Technologist: Dacia LAWSON, [facility]-FWletter sent: BIRADS 4/5 Biopsy Mammogram BI-RADS: 0 Incomplete: Additional Imaging Evaluation Needed Ultrasound BI-RADS: 5 Highly suggestive of malignancy BREAST ULTRASOUND BILATERAL 2020-06-27 12:35:38 - DIAG MAMM BILATERAL VISH CAD DIGITALBILATERAL DIGITAL DIAGNOSTIC MAMMOGRAM 3D/2D WITH CAD: 06/27/2020CLINICAL: Palpable mass, right breast. Digital breast tomosynthesis was performed in addition to routine CC and MLO views. Current mammographic images were evaluated by either a [employer] M-Vu or a [employer] ImageChecker CAD (computer aided detection system). No prior exams were available for compariso n. The tissue of both breasts is predominantly fatty. There is a 2.5 cm round high density mass in the right breast at 3 o'clock. No other significant masses, calcifications, or other findings are seen in either breast. INCOMPLETE: ADDITIONAL IMAGING EVALUATION NEEDEDBilateral ultrasound pending for additional evaluation. - BREAST ULTRASOUND BILATERALULTRASOUND OF BOTH BREASTS AND BOTH AXILLA: 06/27/2020No prior exams were available for comparison. Real- time ultrasound of both breasts and both axilla and clinical breast exam were performed. There is a 2.5 cm round mass in the right breast at 3 o'clock, 5 cm from the nipple, extruding out from the skin. Color flow imaging demonstrates that there is increased vascularity. No abnormalities were seen sonographically in the left breast or either axilla. IMPRESSION: HIGHLY SUGGESTIVE OF MALIGNANCY - FOLLOW-UP RECOMMENDEDThe 2.5 cm round mass in the right breast is highly suggestive of malignancy. An ultrasound guided biopsy is recommended. Eugenio Silveira M.D. dm/:06/27/2020 12:35:38 Entry: - 06/27/2020 15:12:05Imaging Technologist: Dacia LAWSON, [facility]-FWletter sent: BIRADS 4/5 Biopsy Mammogram BI-RADS: 0 Incomplete: Additional Imaging Evaluation Needed Ultrasound BI-RADS: 5 Highly suggestive of malignancy thyroid stimulating hormone, serum 2017-09-12 09:31:00 Test Item thyroid stimulating hormone, serum (test code = 29) 1.160 u[iU]/ mL 0.450-4.500 [facility], [id number] 15:15:00* Test Item Value Reference Range Interpretation Comments thyroid stimulating hormone, serum (test code = 29) 1.780 u[iU]/ mL 0.450-4.500 [facility]LDL cholesterol, [id number] 15:15:00* Test Item Value Reference Range Interpretation Comments LDL cholesterol, serum (test code = 2089-1) 122 mg/dL 0-99 [facility] low density [id number] 15:15:00* Test Item Value Reference Range Interpretation Comments very low density lipoproteins (test code = 2548) 26 mg/dL 5-40 [facility] [id number] 15:15:00* Test Item Value Reference Range Interpretation Comments HDL cholesterol, serum (test code = 2085-9) 62 mg/dL >39 [facility]trig[facility], serum, [id number] 15:15:00* Test Item Value Reference Range Interpretation Comments triglyceride, serum, fasting (test code = 2571-8) 128 mg/dL 0-14 9 [facility]cholesterol, [id number] 15:15:00* Test Item Value Reference Range Interpretation Comments cholesterol, serum (test code = 2093-3) 210 mg/dL 100-199 [facility]thyroid stimulating hormone, [id number] 08:59:00* Test Item Value Reference Range Interpretation Comments thyroid stimulating hormone, serum (test code = 29) 1.910 u[iU]/ mL 0.450-4.500 [facility]LDL cholesterol, [id number] 08:59:00* Test Item Value Reference Range Interpretation Comments LDL cholesterol, serum (test code = 2089-1) 84 mg/dL 0-99 [facility] low density [id number] 08:59:00* Test Item Value Reference Range Interpretation Comments very low density lipoproteins (test code = 2548) 20 mg/dL 5-40 [facility], [id number] 08:59:00* Test Item Value Reference Range Interpretation Comments HDL cholesterol, serum (test code = 2085-9) 58 mg/dL >39 [facility]triglycer[facility], serum, [id number] 08:59:00* Test Item Value Reference Range Interpretation Comments triglyceride, serum, fasting (test code = 2571-8) 99 mg/dL 0-14 9 [facility]cholesterol, [id number] 08:59:00* Test Item Value Reference Range Interpretation Comments cholesterol, serum (test code = 2093-3) 162 mg/dL 100-199 [facility] Healthalanine aminotransferase (SGPT), [id number] 08:59:00 * Test Item Value Reference Range Interpretation Comments alanine aminotransferase (SGPT), serum (test code = 40) 30 1/L 0-32 [facility] Hollyaspartate aminotransferase (SGOT), [id number] 08:59:00* Test Item Value Reference Range Interpretation Comments aspartate aminotransferase (SGOT), serum (test code = 39) 28 1/L 0-40 [facility] Hollyalkaline phosphatase, [id number] 08:59:00* Test Item Value Reference Range Interpretation Comments alkaline phosphatase, serum (test code = 3) 88 1/L 39-117 [facility]bilirubin, serum, [id number] 08:59:00* Test Item Value Reference Range Interpretation Comments bilirubin, serum, total (test code = 43) 0.6 mg/dL 0.0-1.2 [facility] Healthalbumin/globulin ratio, [id number] 08:59:00* Test Item Value Reference Range Interpretation Comments albumin/globulin ratio, serum (test code = 146) 1.8 1.1-2. 5 [facility] Healthglobulin, [id number] 08:59:00* Test Item Value Reference Range Interpretation Comments globulin, serum (test code = 3059) 2.3 1.5-4.5 [facility] Healthalbumin, [id number] 08:59:00* Test Item Value Reference Range Interpretation Comments albumin, serum (test code = 2) 4.1 g/dL 3.5-4.8 [facility] Healthprotein, total, [id number] 08:59:00* Test Item Value Reference Range Interpretation Comments protein, total, serum (test code = 36) 6.4 g/dL 6.0-8.5 [facility] Healthcalcium, [id number] 08:59:00* Test Item Value Reference Range Interpretation Comments calcium, serum (test code = 11) 9.2 mg/dL 8.7-10.3 [facility]carbon dioxide, venous [id number] 08:59:00* Test Item Value Reference Range Interpretation Comments carbon dioxide, venous blood (test code = 15) 27 mmol/L 18-29 [facility] Healthchloride, [id number] 08:59:00* Test Item Value Reference Range Interpretation Comments chloride, serum (test code = 13) 102 mmol/L 97-108 [facility] Healthpotassium, [id number] 08:59:00* Test Item Value Reference Range Interpretation Comments potassium, serum (test code = 35) 4.8 mmol/L 3.5-5.2 [facility] Hollysodium, [id number] 08:59:00* Test Item Value Reference Range Interpretation Comments sodium, serum (test code = 159) 140 mmol/L 134-144 [facility] Hollyurea nitrogen/creatinine ratio, [id number] 08:59:00 * Test Item Value Reference Range Interpretation Comments urea nitrogen/creatinine ratio, serum (test code = 2462) 22 - [facility] HealtheGFR if [id number] 08:59:00* Test Item Value Reference Range Interpretation Comments eGFR if (test code = 805550) 86 mL/min/((173/100). m2) >59 [facility] HollyEstimated Glomerular Filtration Rate (calc)2015-05-17 08:59:00* Test Item Value Reference Range Interpretation Comments Estimated Glomerular Filtration Rate (calc) (test code = 92851) 74 mL/min/((173/100).m2) >59 [facility] Hollycreatinine, [id number] 08:59:00* Test Item Value Reference Range Interpretation Comments creatinine, serum (test code = 18) 0.79 mg/dL 0.57-1.00 [facility] Hollyurea nitrogen, [id number] 08:59:00* Test Item Value Reference Range Interpretation Comments urea nitrogen, blood (test code = 9) 17 mg/dL 8-27 [facility] Hollyblood glucose, [id number] 08:59:00* Test Item Value Reference Range Interpretation Comments blood glucose, random (test code = 8) 96 mg/dL 65-99 [facility] Hollyimmature granulocytes, percentage of total cells, blood 2015-05-17 08:59:00* Test Item Value Reference Range Interpretation Comments immature granulocytes, percentage of total cells, bloo d (test code = 683327) 0 % [facility] Hollybasophil count, [id number] 08:59:00* Test Item Value Reference Range Interpretation Comments basophil count, absolute (test code = 80845) 0.0 x10E3/uL 0.0-0.2 [facility] HealthEosinophil Absolute [id number] 08:59:00* Test Item Value Reference Range Interpretation Comments Eosinophil Absolute Count (test code = 406008) 0.1 X10E3/UL 0.0-0.4 [facility] Healthmonocyte count, blood, [id number] 08:59:00* Test Item Value Reference Range Interpretation Comments monocyte count, blood, automated (test code = 3076) 0.3 X10E3/UL 0. 1-0.9 [facility] Hollylymphocyte count, blood, [id number] 08:59:00* Test Item Value Reference Range Interpretation Comments lymphocyte count, blood, automated (test code = 3074) 1.7 X10E3/UL 0.7-3.1 [facility] HealthAbsolute [id number] 08:59:00* Test Item Value Reference Range Interpretation Comments Absolute Neutrophils (test code = 13076) 3.7 X10E3/UL 1.4-7.0 [facility] Hollybasophils as percent of blood [id number] 08:59:00* Test Item Value Reference Range Interpretation Comments basophils as percent of blood leukocytes (test code = 2426) 1 % [facility] Healtheosinophils as percent of blood [id number] 08:59:00* Test Item Value Reference Range Interpretation Comments eosinophils as percent of blood leukocytes (test code = 4170) 2 % [facility] Healthmonocytes as percent of blood [id number] 08:59:00* Test Item Value Reference Range Interpretation Comments monocytes as percent of blood leukocytes (test code = 2421) 6 % [facility] Healthlymphocytes as percent of blood [id number] 08:59:00* Test Item Value Reference Range Interpretation Comments lymphocytes as percent of blood leukocytes (test code = 317) 29 % [facility] Healthneutrophils as percent of blood [id number] 08:59:00* Test Item Value Reference Range Interpretation Comments neutrophils as percent of blood leukocytes (test code = 316) 62 % [facility] Hollyplatelet [id number] 08:59:00* Test Item Value Reference Range Interpretation Comments platelet count (test code = 66) 254 X10E3/UL 150-379 [facility] Hollyred blood cell distribution [id number] 08:59:00* Test Item Value Reference Range Interpretation Comments red blood cell distribution width (test code = 1030) 14.6 % 1 2.3-15.4 [facility] corpuscular hemoglobin concentration, [id number] 08:59:00* Test Item Value Reference Range Interpretation Comments mean corpuscular hemoglobin concentration, RBC (test code = 1029) 32.8 G/DL 31.5-35.7 [facility] corpuscular hemoglobin, [id number] 08:59:00* Test Item Value Reference Range Interpretation Comments mean corpuscular hemoglobin, RBC (test code = 1031) 31.0 pg 26 .6-33.0 [facility] corpuscular volume, [id number] 08:59:00* Test Item Value Reference Range Interpretation Comments mean corpuscular volume, RBC (test code = 315) 95 fL 79-97 [facility] Hollyhematocrit, [id number] 08:59:00* Test Item Value Reference Range Interpretation Comments hematocrit, blood (test code = 64) 41.2 % 34.0-46.6 [facility] Hollyhemoglobin, [id number] 08:59:00* Test Item Value Reference Range Interpretation Comments hemoglobin, blood (test code = 65) 13.5 g/dL 11.1-15.9 [facility] Hollyerythrocyte (RBC) [id number] 08:59:00* Test Item Value Reference Range Interpretation Comments erythrocyte (RBC) count (test code = 67) 4.35 X10E6/UL 3.77-5.28 [facility] Hollyleukocyte count, [id number] 08:59:00* Test Item Value Reference Range Interpretation Comments leukocyte count, blood (test code = 68) 6.0 X10E3/UL 3.4-10.8 [facility] Hollythyroid stimulating hormone, [id number] 16:39:00* Test Item Value Reference Range Interpretation Comments thyroid stimulating hormone, serum (test code = 29) 0.994 u[iU]/ mL 0.450-4.500 [facility]
[2020-07-15] MEDS ORDERED: SODIUM CHLORIDE 0.9% 50ML 50 ML ONE (08:39)
[2020-07-15] MEDS ORDERED: IOPAMIDOL 370 MG/ML 200 ML INFUS..BTL INJ ONE (08:40)
--- NOTE | 2020-07-15 09:41 | Diagnostic Imaging Report ---
CT of the chest, with contrast. History: Right breast hematoma, bleeding angiosarcoma, history of breast cancer. Comparison: None available. Technique: Multidetector CT scanning of the chest was performed from the level of the apices to the upper abdomen after intravenous administration of contrast. Coronal and sagittal multiplanar reformations were obtained. RADIATION DOSE: Total DLP: 521.19 mGy*cm Dose modulation, iterative reconstruction, and/or weight based adjustment of the mA/kV was utilized to reduce the radiation dose to as low as reasonably achievable. FINDINGS: The thyroid and remaining visualized structures within the base of the neck demonstrate no significant abnormalities. The thoracic aorta is normal in course and caliber. The main pulmonary artery is normal in caliber. The heart is not enlarged. No abnormal pericardial fluid is present. There is no abnormal axillary, mediastinal, or hilar lymph node enlargement. Please note CT examination is suboptimal for assessment of the breast parenchyma. In this patient with reported history of breast cancer, multiple surgical clips are identified within the right breast and axilla suggestive of lumpectomy and ronen dissection. Additionally, there is skin thickening and an exophytic, enhancing nodular lesion identified along the skin of the right right breast measuring approximately 2.3 x 2.4 cm. There is no evidence for underlying hematoma or fluid collection. The trachea and proximal airways are patent. Examination of the lungs demonstrate no evidence for consolidation, pneumothorax, mass, suspicious nodule, or pleural effusion. There is a large hiatal hernia present. Multiple hypodensities are identified within the visualized liver, some which are compatible with simple cysts and some of which are too small to definitively characterize. The largest cyst measures up to 6.4 cm. The remaining visualized upper abdominal contents demonstrate no significant abnormalities. There are degenerative changes of the visualized spine. The osseous structures otherwise demonstrate no evidence for acute fracture or destructive process. IMPRESSION: 1. Please note CT examination is suboptimal for assessment of the breast parenchyma. Postsurgical changes from suspected right lumpectomy and axillary ronen dissection noted. Enhancing nodular lesion identified along the skin of the right breast which may represent a cutaneous hemangioma. An angiosarcoma cannot be entirely excluded. Recommend nonemergent evaluation with dedicated breast imaging if not already performed. No evidence for underlying hematoma or fluid collection. 2. Large hiatal hernia. 3. Partially visualized hepatic cysts. Signed by: Dr. Danish Perez MD on 07/15/2020 9:38 AM
== END 2020-07-15 10:19 | disposition home or self-care (01) ==
LOC: ER 07:30
DX: C50.911 Malignant neoplasm of unspecified site of right female breast (principal); F03.90 Unspecified dementia, unspecified severity, without behavioral disturbance, psychotic disturbance, mood disturbance, and anxiety; I10 Essential (primary) hypertension; E78.5 Hyperlipidemia, unspecified; F32.9 Major depressive disorder, single episode, unspecified
CPT/HCPCS: 36415; 71260; 80053; 85025; 85610; 86850; 86900; 99284; Q9967

== ENCOUNTER 2020-10-30 20:15 | Emergency (ER) | payer MEDICARE, OTHER ==
[~2020-10-30] VITALS: Ht 170.2 cm; Wt 88.0 kg
[2020-10-30] MEDS ORDERED: ARICEPT10 MG PO (20:55)
[2020-10-30] MEDS ORDERED: ATORVASTATIN CA20 MG PO (20:55)
[2020-10-30] MEDS ORDERED: LOSARTAN POTAS100 MG PO (20:55)
[2020-10-30] MEDS ORDERED: BUPROPION XL150 MG PO (20:55)
[2020-10-30] MEDS ORDERED: SODIUM CHLORIDE 0.9% 1000ML 1,000 ML IV ONE (21:00)
[2020-10-30 21:28] LABS: BASOPHILS # (AUTO) 0.1 (0.0-0.1); BASOPHILS % 0.7 % (0.0-1.0); EOSINOPHILS # (AUTO) 0.2 (0.0-0.4); EOSINOPHILS % 1.6 % (0.0-6.0); HEMATOCRIT 43.8 % (34.2-44.1); HEMOGLOBIN 14.1 g/dL (12.0-16.0); LYMPHOCYTES # (AUTO) 1.8 (1.0-3.2); LYMPHOCYTES % 19.2 % (18.0-39.1); MEAN CORPUSCULAR HEMOGLOBIN 30.3 pg (28-32); MEAN CORPUSCULAR HGB CONC 32.2 g/dL (31-35); MEAN CORPUSCULAR VOLUME 94.2 fL (81-99); MONOCYTES # (AUTO) 0.5 (0.2-0.8); MONOCYTES % 5.5 % (4.4-11.3); NEUTROPHILS # (AUTO) 6.9 (2.1-6.9); NEUTROPHILS % 72.7 % (38.7-80.0); PLATELET COUNT 332 x10e3/uL (140-360); RED BLOOD COUNT 4.65 x10e6/uL (3.6-5.1); RED CELL DISTRIBUTION WIDTH 13.4 % (11.7-14.4)
[2020-10-30 21:36] LABS: CLARITY,URINE CLEAR (CLEAR); COLOR,URINE YELLOW (YELLOW); LEUKOCYTE ESTERASE ,URINE NEGATIVE (NEGATIVE); NITRITE,URINE NEGATIVE (NEGATIVE)
[2020-10-30 21:37] LABS: KETONES,URINE TRACE (NEGATIVE); PROTEIN,URINE DIPSTICK 2+ (NEGATIVE); URINE UROBILINOGEN 0.2 mg/dL (0.2 - 1)
[2020-10-30 21:46] LABS: AMYLASE 63 U/L (25-125); LIPASE 22 U/L (8-78)
[2020-10-30 21:49] LABS: BACTERIA,URINE FEW /HPF; RBC,URINE 0-5 /HPF (0-5)
[2020-10-30 21:49] LABS: ALBUMIN 3.7 g/dL (3.5-5.0); ANION GAP 14.2 mmol/L (8-16); CALCIUM 9.1 mg/dL (8.4-10.2); CREATININE, SERUM 1.26 mg/dL (0.57-1.11); POTASSIUM 4.2 mmol/L (3.5-5.1)
[2020-10-30 21:50] LABS: EPITHELIAL CELLS,URINE MODERATE /LPF
[2020-10-30 21:51] LABS: MUCUS,URINE FEW (RARE)
[2020-10-30 21:57] LABS: CREATINE KINASE MB 0.7 ng/mL (0-5.0)
== END 2020-10-30 23:37 | disposition home or self-care (01) ==
LOC: ER 20:44
DX: R55 Syncope and collapse (principal); R11.2 Nausea with vomiting, unspecified; K44.9 Diaphragmatic hernia without obstruction or gangrene; F03.90 Unspecified dementia, unspecified severity, without behavioral disturbance, psychotic disturbance, mood disturbance, and anxiety; I10 Essential (primary) hypertension; E78.5 Hyperlipidemia, unspecified; K76.89 Other specified diseases of liver; Z85.3 Personal history of malignant neoplasm of breast
CPT/HCPCS: 36415; 70450; 74176; 80053; 81001; 82150; 82550; 82553; 83690; 84484; 85025; 93005; 99284; J7030